=== PATIENT | male | born 1995 | race Caucasian/White ===

== ENCOUNTER 2023-08-12 23:15 | Emergency (ER) | payer OTHER, MEDICAID, SELFPAY ==
--- NOTE | ~2023-08-12 | XR_ITS ---
EXAMINATION: XR ankle RT min 3V DATE: 08/12/2023 23:46 INDICATION: Right ankle pain. Fall. TECHNIQUE: 4 views of right ankle were obtained. COMPARISON: None. FINDINGS: Bone alignment is normal. No fracture. Joint spaces are normal. IMPRESSION: 1. Normal right ankle. Reviewed, dictated and finalized at location E. IMPRESSION: 1. Normal right ankle.
--- NOTE | ~2023-08-12 | XR_ITS ---
EXAMINATION: XR lumbar spine 2-3V DATE: 08/12/2023 23:46 INDICATION: Low back pain. Fall. TECHNIQUE: 3 views of lumbar spine were obtained. COMPARISON: None. FINDINGS: There is 11 degrees levoscoliosis of lumbar spine. There is a compression fracture of L1 wi th 1/5 loss of height. Intervertebral disc heights are normal. The facet joints are unremarkable. IMPRESSION: 1. Age-indeterminate L1 compression fracture. Reviewed, dictated and finalized at location E.
--- NOTE | ~2023-08-12 | CT_ITS ---
Noncontrast CT scan of the lumbar spine CLINICAL HISTORY: Status post fall TECHNIQUE: Axial noncontrast imaging of the lumbar spine was performed. Sagittal and coronal reformat eduardo images were constructed. Dose reduction technique was used on this scan by utilizing automated ex posure control and iterative reconstruction technique. The dose-length product (DLP) was 693.39 mGy-c m. FINDINGS: There is mild compression fracture involving the superior endplate region of L1, acute. No other fracture or subluxation seen. Intervertebral disc spaces are well preserved. At L1-L2, L2-L3, L3-L4, L4-L5, L5-S1, there is no significant disc bulge or herniation. No spinal can al stenosis or neural foraminal narrowing identified at any level. Paravertebral soft tissues are unremarkable. Impression: Mild acute compression fracture of L1, as detailed above. Reviewed, dictated and finalized at location . Impression: Mild acute compression fracture of L1, as detailed above.
[2023-08-12 23:15] VITALS: BP 142/93; PULSE 102; RESP 15; TEMP 36.6; O2SAT 100
--- NOTE | 2023-08-13 00:09 | ED.FALL ---
HPI - Fall General Chief Complaint: Fall Stated Complaint: glf, low back pain Time Seen by Provider: 08/12/23 23:41 History of Present Illness HPI Narrative: 27-year-old male presents to the emergency department after a ground level fall that occurred prior to arrival. 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 States he landed on his buttock and low back. He did not hit his head or lose consciousness. He is reporting pain to his low back. Denies neck pain or extremity pain. He denies saddle anesthesia, bowel or bladder incontinence, bladder retention, extremity weakness. Related Data Allergies Allergy/AdvReac Type Severity Reaction Status Date / Time No Known Allergies Allergy Verified 08/12/23 23:20 Review of Systems Review of Systems: CONSTITUTIONAL: Denies fever, chills, or sweats. EYES: Denies visual changes, redness, or discharge. ENT: Denies rhinorrhea, congestion, sore throat, or otalgia. CARDIOVASCULAR: Denies chest pain, palpitations, or edema. RESPIRATORY: Denies cough or dyspnea. GASTROINTESTINAL: Denies abdominal pain, nausea, vomiting, or diarrhea. GENITOURINARY: Denies dysuria or hematuria. SKIN: Denies rash or itching. MUSCULOSKELETAL: See HPI NEUROLOGIC: Denies headache, numbness, or weakness. PSYCHIATRIC: Denies anxiety or depression. Exam Narrative: GENERAL: Well-appearing, well-nourished, and in no acute distress. HEAD: Normocephalic, atraumatic. EYES: PERRLA and EOMI. ENT: Nares clear, no rhinorrhea or epistaxis. Mucous membranes moist. NECK: No cervical spinous tenderness, step-offs or deformities. BACK: No thoracic spinous tenderness, step-offs or deformities. Tenderness to the lumbar spine without step-offs or deformities. No tenderness to the sacrum or pelvis. No overlying skin changes. CHEST: Clear to auscultation. No respiratory distress. HEART: Regular rate and rhythm. No murmur heard. Normal peripheral pulses. ABDOMEN: Soft, nontender, nondistended, normal active bowel sounds. EXTREMITIES: Normal range of motion. No edema. Strength 5/5 in BUE and BLE. Sensation intact throughout. No saddle anesthesia. DP pulses 2+. SKIN: Warm, dry, no rash. NEURO: No focal deficits. Alert and oriented x3 Course Vital Signs Vital signs: Vital Signs Temperature 97.9 F 08/12/23 23:15 Pulse Rate 102 H 08/12/23 23:15 Respiratory Rate 15 08/12/23 23:15 Blood Pressure 142/93 H 08/12/23 23:15 Pulse Oximetry 100 08/12/23 23:15 Oxygen Delivery Room Air 08/12/23 23:15 Temperature 97.9 F 08/12/23 23:15 Pulse Rate 98 08/13/23 01:44 Respiratory Rate 16 08/13/23 01:44 Blood Pressure 145/91 H 08/13/23 01:44 Pulse Oximetry 97 08/13/23 01:44 Oxygen Delivery Room Air 08/12/23 23:15 MDM - Fall MDM Narrative Medical decision making narrative: 27-year-old male presents to emergency department for low back pain after a ground level mechanical fall that occurred prior to arrival. See HPI for further history. Triage vital significant for blood pressure 142/93 and heart rate of 102, otherwise unremarkable. Exam is significant for the above. He is neurovascularly intact. X-ray of the ankle is unremarkable. CT lumbar spine shows acute mild compression fracture of L1 without retropulsion. Imaging and exam discussed with the patient. He received Tylenol, Flexeril, [place] and lidocaine patch with improvement. He is ambulatory and remains neurovascularly intact. Feel he is safe to be discharged home with outpatient follow-up. Referral provided. Encouraged him to obtain an LSO brace. Pain medications and to pharmacy. Strict ED return precautions discussed. He is agreeable to the plan verbalized understanding. Discharged in stable condition. Lab Data Labs: Lab Results 08/13/23 Range/Units 01:18 Urine Color Yellow (Yellow) Urine Appearance Clear (Clear
[2023-08-13] MEDS: LIDOCAINE 5% PATCH 1 PATCH TRANSDERM (00:16)
[2023-08-13] MEDS: ACETAMINOPHEN 500 MG TABLET 1000 MG PO (00:16)
[2023-08-13] MEDS: CYCLOBENZAPRINE HCL 10 MG TABLET PO (00:17)
[2023-08-13 01:27] LABS: Appearance Urine Clear (Clear); Bacteria Urine None Seen /hpf; Bilirubin Urine Negative (Negative); Blood Urine Negative (Negative); Color Urine Yellow (Yellow); Glucose Urine UA Negative (Negative); Ketones Urine Trace mg/dL (Negative); Leukocyte Esterase Ur Negative LEU/UL (Negative); Nitrate Urine Negative (Negative); Non Pathogenic Casts 0-2; Protein Urine Trace mg/dL (Negative); RBC Urine 0-2 /hpf (0-2); Specific Grav Ur 1.024 (1.001-1.035); Squamous Epithelial Cell Urine None Seen /hpf (Few); WBC Urine 0-5 /hpf (0-3); pH Urine 6.5 (5.0-9.0)
[2023-08-13 01:35] LABS: Add Urine Microscopic? YES
[2023-08-13 01:44] VITALS: BP 145/91; PULSE 98; RESP 16; O2SAT 97
[2023-08-13] MEDS: HYDROcodone/acetaminophen (*CRX) 5-325 MG TABLET 1 TAB PO (01:55)
== END 2023-08-13 02:16 | disposition home or self-care (01) ==
PROVIDERS: Emergency Provider Physician Assistant
DX: S32.010A Wedge compression fracture of first lumbar vertebra, initial encounter for closed fracture (principal); W18.39XA Other fall on same level, initial encounter
CPT/HCPCS: 72100; 72131; 73610; 81001; 99284; A9270

== ENCOUNTER 2023-08-13 02:54 | Emergency (ER) | payer MEDICAID, SELFPAY ==
[2023-08-13 03:01] VITALS: BP 133/74; PULSE 84; RESP 18; TEMP 37.1; O2SAT 96
[2023-08-13] MEDS: ONDANSETRON HCL ODT 4 MG TABLET PO (03:23)
[2023-08-13 03:26] VITALS: BP 133/74; PULSE 82; RESP 14; O2SAT 99
--- NOTE | 2023-08-13 03:55 | ED.GENADULT ---
HPI - General Adult General Chief complaint: Nausea/Vomiting/Diarrhea Stated complaint: nausea Time Seen by Provider: 08/13/23 03:24 History of Present Illness HPI narrative: Patient is 27-year-old who presents to the emergency department this evening complaining of nausea. Patient was just seen at our facility 1 hour prior for back pain and did have a compression fracture. He was provided with a spine surgeon to follow up with and administered oral Billings. Patient states that he believes that the Billings is what caused him to be nauseous. He denies any vomiting and currently denying any additional symptoms including abdominal pain, urinary symptoms, fevers or chills. Related Data Allergies Allergy/AdvReac Type Severity Reaction Status Date / Time No Known Allergies Allergy Verified 08/12/23 23:20 Review of Systems Review of Systems: All systems are reviewed and are negative unless stated otherwise in the HPI. Exam Narrative: General: Alert, awake, afebrile, in no acute distress. Cardiovascular: Regular rate and rhythm, no murmurs, rubs or gallops, no peripheral edema. Respiratory: Clear to auscultation bilaterally, no tachypnea, no wheezing, no rhonchi, no rubs, no respiratory distress. Abdomen: Soft, nontender, nondistended, no rebound, no guarding, no peritoneal signs. Musculoskeletal: No joint swelling or deformity, normal muscle tone. Skin: No rashes or petechia, no signs of infection. Psychiatric: Alert and oriented, normal behavior and judgment for situation. Neurological: Alert and oriented to person, place, and time. Follows all commands. No focal deficits, speech is clear and fluent. Course Vital Signs Vital signs: Vital Signs Temperature 98.8 F 08/13/23 03:01 Pulse Rate 84 08/13/23 03:01 Respiratory Rate 18 08/13/23 03:01 Blood Pressure 133/74 08/13/23 03:01 Pulse Oximetry 96 08/13/23 03:01 Oxygen Delivery Room Air 08/13/23 03:01 Temperature 98.8 F 08/13/23 03:01 Pulse Rate 82 08/13/23 03:26 Respiratory Rate 14 08/13/23 03:26 Blood Pressure 133/74 08/13/23 03:26 Pulse Oximetry 99 08/13/23 03:26 Oxygen Delivery Room Air 08/13/23 03:01 Medical Decision Making MDM Narrative Medical decision making narrative: Patient was evaluated by me upon arrival to the emergency department. Vital signs were obtained and noted to be normal. Patient was administered an oral ODT Zofran 4 mg. On repeat assessment, patient states that he feels much better. Patient was informed that a script for Zofran has been sent to his pharmacy and instructed to pick it up when he picks up his Bill[place] script. He was also instructed to follow up with his family doctor within the next 3 days and to return to the emergency room if any new or worsening symptoms develop and patient is agreeable. He was discharged in stable condition. Vital Signs Vital Signs: Vital Signs Temperature 98.8 F 08/13/23 03:01 Pulse Rate 84 08/13/23 03:01 Respiratory Rate 18 08/13/23 03:01 Blood Pressure 133/74 08/13/23 03:01 Pulse Oximetry 96 08/13/23 03:01 Oxygen Delivery Room Air 08/13/23 03:01 Temperature 98.8 F 08/13/23 03:01 Pulse Rate 82 08/13/23 03:26 Respiratory Rate 14 08/13/23 03:26 Blood Pressure 133/74 08/13/23 03:26 Pulse Oximetry 99 08/13/23 03:26 Oxygen Delivery Room Air 08/13/23 03:01 Discharge Plan Discharge Clinical Impression: Nausea Patient Disposition: Home, Self-Care Condition: Improved Instructions: Antibiotic Form, Acute Nausea and Vomiting (DC) Additional Instructions: Please follow-up with your family doctor within the next 3-5 days. Script for Zofran was sent to your pharmacy and you were instructed to take as needed for nausea and vomiting. Return to the ED if any new or worsening symptoms develop. Prescriptions: New ondansetron 4 mg tablet,disintegrating 4 mg PO Q8H PRN (Reason: nausea and vomiting) Qty: 10
[2023-08-13 04:07] VITALS: BP 186/86; PULSE 86; RESP 16; O2SAT 98
== END 2023-08-13 04:08 | disposition home or self-care (01) ==
PROVIDERS: Emergency Provider Emergency Medicine
DX: R11.0 Nausea (principal)
CPT/HCPCS: 99283; A9270